=== PATIENT | female | born 1950 | race Caucasian/White ===

== ENCOUNTER → 2018-11-18 | Outpatient (CLI) | payer MEDICARE, OTHER ==
[~2018-11-18] MED LIST: AFREZZA1 EAC1 IH; ASPIR 8181 MG PO; ASPIRIN325 PO; BYSTOLIC2.5 MG PO; CLONIDINE0.1 PO; EFFIENT10 MG PO; FISH OIL 1,001000 MG PO; FUROSEMIDE 20 M20 MG PO; IMDUR 30 MG TAB30 M1 PO; INSULIN PUMP; ISOSORBIDE DINI30 MG PO; LISINOPRIL40 MG PO; NITROSTAT0.4 MG SL; NORVASC10 MG PO; PLAVIX 75 MG TA75 M1 PO; RANEXA500 MG PO; RED YEAST RICE600 MG PO; SIMVASTATIN5 MG PO; SYNTHROID50 MCG PO
--- NOTE | 2018-11-18 16:47 | CARDNUC ---
[place] [address] CARDIAC NUCLEAR IMAGING REPORT Name: MACKENZIE DELUCA Room: [facility]#: [id number] Admission: 11/18/18 Attend Phys: Tera Steiner Discharge: Date of : 52 Date of Service: 11/18/18 1647 Report #: [id number] THIS REPORT FOR: //name// APPROVED REPORT Study performed: 11/18/2018 10:57:36 Exam: Nuclear Stress Test Indication: routine follow up, s/p stent Patient Location: Out-Patient Stress Tech: Manisha Bruce Stress Nurse: Ghislaine Malloy RN NM Tech:LUCAS Hensley Ht: 5 ft 3 in Wt: 174 lbs BSA: 1.82 m2 BMI: 30.81 Medical History Medical History: teja carotid stenosis, hyperlipidemia, hypertension, pvd, diabetes Medications: lisinopril, clonidine, simvastatin, clopidogrel, diltiazem, isosorbide, furosemide Allergies: codeine Cardiac Risk Factors: age, hyperlipidemia, hypertension, pvd, diabetes, fam hx Previous Cardiac Procedures: cabg, pci Exercise History: Indeterminate Meds Held (24 hrs): isosorbide Stress Test Details Stress Test: Pharmacologic stress testing performed using 0.4 mg of regadenoson per 5 mL given IV over 10 seconds. Reason for pharmacologic stress test: physical limitation. HR Resting HR: 53 bpm Max Heart Rate (APMHR): 153 bpm Max HR Achieved: 69 bpm Target HR (85% APMHR): 130 bpm % of APMHR: 45 Recovery HR: 67 bpm BP Resting BP: 127/58 mmHg Max BP: 136/50 [place] [address] CARDIAC NUCLEAR IMAGING REPORT Name: MACKENZIE DELUCA Room: [facility]#: [id number] Admission: 11/18/18 Attend Phys: Tera Steiner Discharge: Date of : 52 Date of Service: 11/18/18 1647 Report #: [id number] Resting ECG: Sinus Rhythm, nonspecific ST-T abnormalities Stress ECG: Sinus Rhythm, nonspecific ST-T abnormalities ST Change: None Arrhythmia: None Recovery ECG: Sinus Rhythm, NSSTT changes Recovery ST Change: None Recovery Arrhythmia: None Clinical Reason for Termination: Completed protocol Exercise duration: 0 min sec Exercise capacity: 1 METs The patient tolerated Lexiscan without significant symptoms. Nurse Comments pt unable to walk on treadmill d/t recent back surgery Stress ECG Conclusion The baseline 12-lead EKG shows sinus rhythm with subtle ST segment depression diffusely. EKGs obtained during and post exercise showed sinus rhythm with continued diffuse subtle ST segment depression. NM EXAM: Myocardial Perfusion REST/STRESS Imaging Protocol: Rest Tc-99m/Stress Tc-99m 1 day Resting Data Rest SPECT myocardial perfusion imaging was performed in supine position 30 minutes following the intravenous injection of 11.7 mCi of Tc-99m Sestamibi. Time of rest injection: 0935 Date: 11/18/2018 The images were gated to evaluate regional wall motion and calculate left ventricular ejection fraction. Administration Route: IV Administration Site: Right AC Pharmacologic Stress Pharmacologic stress test was performed by injecting Regadenoson 0.4 mg IV push followed by the intravenous injection of 36.0 mCi of Tc-99m Sestamibi. Time of stress injection: 1100 Date: 11/18/2018 Administration Route: IV Administration Site: Right AC Gated Stress SPECT was performed 40 minutes after stress injection. The images were gated to evaluate regional [place] [address] CARDIAC NUCLEAR IMAGING REPORT Name: MACKENZIE DELUCA Room: [facility]#: [id number] Admission: 11/18/18 Attend Phys: Tera Steiner Discharge: Date of : 52 Date of Service: 11/18/18 1647 Report #: [id number] left ventricular ejection fraction. Stress only was performed in the Supine position. Study Quality Study: Good Artifact: Mild Breast artifact Study Data At rest, the left ventricular ejection fraction was 61%.. Post stress, the left ventricular ejection was 69%.. TID = 1.01. Perfusion Perfusion images show a focal inferoapical defect that is slightly more pronounced on stress than resting images. Region could represent breast attenuation artifact or focal infarct with a mild region of rosie-infarct ischemia. This area does exhibit normal wall motion. Wall Motion There is a septal wall motion abnormality consistent with prior bypass procedure. Nuclear Conclusion ECG Findings: non-diagnostic Clinical Findings: negative for ischemia Nuclear Findings: mildly ischemic Exercise Capacity: not assessed Left Ventricular Function: preserved Risk Study: moderate Perfusion images suggest possible focal infarct in the anteroapical wall with mild rosie-infarct ischemia versus breast attenuation artifact. Wall motion in this region appears normal. No other significant fixed or reversible defects were identified. Global LV systolic function was well-preserved. This is a moderate risk. <Conclusion> The baseline 12-lead EKG shows sinus rhythm with subtle ST segment depression diffusely. EKGs obtained during and post exercise showed sinus rhythm with continued diffuse subtle ST segment depression. <ELECTRONICALLY SIGNED> By: Scottie Casillas MD, FACC 11/18/18 1647 46 46 Scottie Casillas MD, FACC /INF
== END ==
LOC: M.NUC 05-05 16:27
DX: I25.118 Atherosclerotic heart disease of native coronary artery with other forms of angina pectoris (principal); I10 Essential (primary) hypertension; E11.9 Type 2 diabetes mellitus without complications; E78.00 Pure hypercholesterolemia, unspecified; Z79.82 Long term (current) use of aspirin; Z79.899 Other long term (current) drug therapy; Z95.1 Presence of aortocoronary bypass graft; Z95.5 Presence of coronary angioplasty implant and graft

== ENCOUNTER → 2021-06-04 | Outpatient (CLI) | payer OTHER ==
--- NOTE | 2021-06-07 18:39 | CARDNUC ---
[place] [address] CARDIAC NUCLEAR IMAGING REPORT Name: MACKENZIE DELUCA Room: [facility]#: [id number] Admission: 06/04/21 Attend Phys: Tera Steiner Discharge: Date of : 52 Date of Service: 06/07/21 1839 Report #: [id number] THIS REPORT FOR: cc: Porsha Weeks,Porsha Villatoro,Scottie Osman MD [facility] ~ APPROVED REPORT Imaging Protocol: Stress Tc-99m/Rest Tc-99m 1 day Study performed: 06/04/2021 13:00:00 Indication: HX CABG, HX PCI Patient Location: Out-Patient Stress Nurse: DANITA Durant Tech:LUCAS Hensley Ht: 5 ft 2 in Wt: 191 lbs BSA: 1.87 m2 BMI: 34.93 Medical History Medical History: CAD s/p CABG, CAD s/p stent, Carotid artery disease, Diabetic Insulin, Former Smoker, HTN, Hyperlipidemia, Obesity , Weakness, HX Falls, HX head injury requiring surgery, arthritis, uses a cane to ambulate for stability. Medications: ASA 325 mg, Clonidine, Clopidogrel, Diltiazem, Lasix, Isosorbide, Lisinopril, NTG, Simvastatin. Allergies: Codeine. Cardiac Risk Factors: Age, Diabetes (insulin), FHX of CAD, HTN, Hyperlipidemia, Past Smoker, Obesity. Previous Cardiac Procedures: CABG, PCI. Pretest Chest Pain Characteristics: No chest pain. Exercise History: Sedentary. Physical Disabilities: Uses a cane to ambulate, HX of falls, weakness. Meds Held (24 hrs): Isosorbide, NTG. Resting Data Rest SPECT myocardial perfusion imaging was performed in supine position 30 minutes following the intravenous injection of 10.3 mCi of Tc-99m Sestamibi. Time of rest injection: 13:15 Date: 06/04/2021 The images were gated to evaluate regional wall motion and calculate left ventricular ejection fraction. Administration Route: [place] [address] CARDIAC NUCLEAR IMAGING REPORT Name: MACKENZIE DELUCA Room: [facility]#: [id number] Admission: 06/04/21 Attend Phys: Tera Steiner Discharge: Date of : 52 Date of Service: 06/07/21 1839 Report #: [id number] Pharmacologic Stress Pharmacologic stress test was performed by injecting Regadenoson 0.4 mg IV push over 10-15 seconds immediately followed by the intravenous injection of 33.2 mCi of Tc-99m Sestamibi. Time of stress injection: 13:30 Date: 06/07/2021 Administration Route: IV Heart Rate at time of stress injection: 75 bpm. Gated Stress SPECT was performed 30 minutes after stress injection. The images were gated to evaluate regional wall motion and calculate left ventricular ejection fraction. Stress Test Details Stress Test: Pharmacologic stress testing performed using 0.4 mg of regadenoson per 5 mL given IV over 10 seconds. Reason for pharmacologic stress test: Uses a cane to ambulate, HX of falls, weakness.. HR Max Heart Rate (APMHR): 150 bpm Resting HR: 54 bpm Target HR (85% APMHR): 127 bpm Max HR Achieved: 76 bpm % of APMHR: 50 Recovery HR: 65 bpm BP Resting BP: 170/67 mmHg Max BP: 147/55 mmHg Recovery BP: 163/53 mmHg BP response to stress: Normal blood pressure response to stress. ECG Resting ECG: Sinus bradycardia Stress ECG: Sinus rhythm ST Change: Downsloping Maximum ST Deviation: 0.5 mm Arrhythmia: None Recovery ECG: Sinus rhythm Recovery ST Change: Downsloping Recovery ST Deviation: 0.5 mm Recovery Arrhythmia: None Clinical Reason for Termination: Completed protocol Stress Symptoms: None voiced Exercise duration: 00 min 00 [place] [address] CARDIAC NUCLEAR IMAGING REPORT Name: MACKENZIE DELUCA [id number] Admission: 06/04/21 Attend Phys: Tera Steiner Discharge: Date of : 52 Date of Service: 06/07/21 1839 Report #: [id number] Exercise capacity: 1.00 METs The patient tolerated Lexiscan infusion without significant cardiac symptoms. Nurse Comments Patient tolerated a sitting Lexiscan Nuclear Stress test. Patient was stable and stated she felt good when escorted to Nuclear Medicine for imaging. Stress ECG Conclusion The baseline twelve-lead EKG shows sinus rhythm without significant ST segment or T wave abnormality. EKGs obtained during and post Lexiscan stress show subtle 0.[address] segment depression in the inferior leads. There were no stress-induced arrhythmias. Study Quality Study: Good Artifact: No artifact Study Data At rest, the left ventricular ejection fraction was 74%.. Post stress, the left ventricular ejection was 65%.. TID = 1.15. Perfusion There is a mostly reversible small in size moderate intensity defect in the mid to distal anteroapical wall. No other significant fixed or reversible defects are identified. Wall Motion Global LV systolic function is preserved. There is a septal wall motion abnormality of uncertain significance. Nuclear Conclusion ECG Findings: equivocal Clinical Findings: negative for ischemia Nuclear Findings: positive for ischemia Exercise Capacity: not assessed Left Ventricular Function: Preserved Risk Study: high Perfusion images suggest ischemia involving the mid to apical anterior wall. No other significant defects identified. Global LV systolic function is preserved. This is a high risk study. <Conclusion> [place] [address] CARDIAC NUCLEAR IMAGING REPORT Name: MACKENZIE DELUCA Room: [facility]#: [id number] Admission: 06/04/21 Attend Phys: Tera Steiner Discharge: Date of : 52 Date of Service: 06/07/21 1839 Report #: [id number] The baseline twelve-lead EKG shows sinus rhythm without significant ST segment or T wave abnormality. EKGs obtained during and post Lexiscan stress show subtle 0.[address] segment depression in the inferior leads. There were no stress-induced arrhythmias. <ELECTRONICALLY SIGNED> By: Scottie Casillas MD, FACC 06/07/211838 [id number] Scottie Casillas MD, FACC /INF
== END ==
LOC: M.NUC 05-07 16:05
PROVIDERS: ATTEND Internal Medicine
DX: I25.89 Other forms of chronic ischemic heart disease (principal); I25.10 Atherosclerotic heart disease of native coronary artery without angina pectoris; I65.29 Occlusion and stenosis of unspecified carotid artery; E11.9 Type 2 diabetes mellitus without complications; I10 Essential (primary) hypertension; E78.5 Hyperlipidemia, unspecified; E66.9 Obesity, unspecified; Z87.891 Personal history of nicotine dependence; Z79.4 Long term (current) use of insulin; Z95.5 Presence of coronary angioplasty implant and graft

== ENCOUNTER → 2021-06-07 | Outpatient (CLI) | payer OTHER | LOC: M.NUC 12:30 | PROVIDERS: ATTEND Internal Medicine | DX: I25.89 Other forms of chronic ischemic heart disease (principal); I25.10 Atherosclerotic heart disease of native coronary artery without angina pectoris; Z95.1 Presence of aortocoronary bypass graft; Z95.5 Presence of coronary angioplasty implant and graft ==